=== PATIENT | male | born 1960 | race Caucasian/White ===

== ENCOUNTER → 2020-05-28 | Outpatient (CLI) | payer MEDICARE ==
[~2020-05-28] MED LIST: BACTROBAN OINT22 GM PO; KEFLEX500 MG PO; LISINOPRIL2.5 MG PO; METFORMIN500 MG PO; MOTRIN800 MG PO; ZOCOR20 MG PO
== END | disposition home or self-care (01) ==
LOC: RAD 10:32
PROVIDERS: ATTEND Nurse Practitioner Family
DX: M25.511 Pain in right shoulder (principal)

== ENCOUNTER → 2022-12-25 | Outpatient (CLI) | payer MEDICARE | END | disposition home or self-care (01) | LOC: RAD 09:38 | PROVIDERS: ATTEND Chiropractor | DX: M47.815 Spondylosis without myelopathy or radiculopathy, thoracolumbar region (principal); M43.8X4 Other specified deforming dorsopathies, thoracic region; M47.816 Spondylosis without myelopathy or radiculopathy, lumbar region ==

== ENCOUNTER → 2023-03-02 | Outpatient (CLI) | payer OTHER | END | disposition home or self-care (01) | LOC: RESCLI 02:50 | PROVIDERS: ATTEND Internal Medicine | DX: T78.40XA Allergy, unspecified, initial encounter (principal); E11.9 Type 2 diabetes mellitus without complications; I10 Essential (primary) hypertension; E78.5 Hyperlipidemia, unspecified; R51.9 Headache, unspecified; G20.B1 Parkinson's disease with dyskinesia, without mention of fluctuations; F41.9 Anxiety disorder, unspecified; Z98.890 Other specified postprocedural states; Z82.49 Family history of ischemic heart disease and other diseases of the circulatory system; Z79.899 Other long term (current) drug therapy; X58.XXXA Exposure to other specified factors, initial encounter ==

== ENCOUNTER 2024-06-28 14:07 | Emergency (ER) | payer OTHER ==
[~2024-06-28] VITALS: Ht 175.2 cm; Wt 101.6 kg
[2024-06-28] MEDS ORDERED: OXYCODONE HCL (IR) 5 MG TAB PO ONE (14:30)
[2024-06-28] MEDS ORDERED: HYDROCODONE-AC1 EAC1 PO (15:05)
== END 2024-06-28 15:45 | disposition home or self-care (01) ==
LOC: ED 14:07
DX: S86.912A Strain of unspecified muscle(s) and tendon(s) at lower leg level, left leg, initial encounter (principal); Z96.652 Presence of left artificial knee joint; Z79.84 Long term (current) use of oral hypoglycemic drugs; Z79.899 Other long term (current) drug therapy; Z98.890 Other specified postprocedural states; W18.09XA Striking against other object with subsequent fall, initial encounter; Y93.89 Activity, other specified; Y92.89 Other specified places as the place of occurrence of the external cause; Y99.8 Other external cause status